=== PATIENT | female | born 1980 | race Caucasian/White ===

== ENCOUNTER 2019-09-04 11:54 | Emergency (ER) | payer BC, OTHER ==
[2019-09-04] MEDS ORDERED: IBUPROFEN 600 MG TABLET PO ONE (12:18)
--- NOTE | 2019-09-04 12:22 | Emergency Department Record ---
History of Present Illness - General Chief Complaint: Ankle/Foot Injury Stated Complaint: FOOT INJURY Time Seen by Provider: 09/04/19 12:18 Source: Patient Mode of Arrival: Ambulatory Limitations: No limitations - History of Present Illness Initial Comments: 39 yo female presents after injury to her foot and ankle last night. She mis- stepped and rolled her ankle. She has lateral foot and ankle pain. No numbness or tingling. No prior injury. No proximal leg or knee pain. Injury occurred last night MD Complaint: Ankle injury, Foot injury Onset/Timin -: Days(s) Injury: Ankle: Right, Foot: Right Type of Injury: Unknown Place: Home Severity scale (1-10): 5 Improves With: Immobilization Worsens With: Weight bearing Context: Walking Associated Symptoms: Snap/pop sensation - Related Data Home Medications Medication Instructions Recorded Confirmed Last Taken Etonogestrel/Ethinyl Estradiol 1 each VG ASDIR 09/04/19 09/04/19 Unknown [Nuvaring Vaginal Ring] Allergies Allergy/AdvReac Type Severity Reaction Status Date / Time morphine Allergy SWELLING Verified 09/04/19 12:12 (GENERAL) Travel Screening - Travel/Exposure Within Last 30 Days Have you traveled within the last 30 days?: No Review of Systems Constitutional: Denies: Chills, Fever, Malaise, Weakness Eyes: Denies: Eye discharge ENT: Denies: Congestion Respiratory: Denies: Cough, Dyspnea, Wheezes Cardiovascular: Denies: Chest pain, Palpitations, Syncope Endocrine: Denies: Fatigue Gastrointestinal: Denies: Abdominal pain, Diarrhea, Nausea, Vomiting Genitourinary: Denies: Dysuria, Urgency Musculoskeletal: Reports: As per HPI, Arthralgia Skin: Denies: Bruising, Change in color, Rash Neurological: Denies: Headache Psychiatric: Denies: Anxiety Hematological/Lymphatic: Denies: Easy bleeding, Easy bruising Past Medical History - SOCIAL HISTORY Smoking Status: Former smoker Alcohol Use: None Drug Use: None - RESPIRATORY Hx Respiratory Disorders: No - CARDIOVASCULAR Hx Cardio Disorders: No - NEURO Hx Neuro Disorders: No - GI Hx GI Disorders: No - Hx Genitourinary Disorders: No - ENDOCRINE Hx Endocrine Disorders: No - MUSCULOSKELETAL Hx Musculoskeletal Disorders: No - PSYCH Hx Psych Problems: Yes Hx Anxiety: Yes Hx Depression: Yes - HEMATOLOGY/ONCOLOGY Hx Hematology/Oncology Disorders: No Family Medical History Any Significant Family History?: No Physical Exam - General General Appearance: Alert, Oriented x3, Cooperative, No acute distress Limitations: No limitations - Head Head exam: Atraumatic, Normal inspection - Eye Eye exam: Normal appearance. negative: Conjunctival injection - ENT ENT exam: Normal exam, Mucous membranes moist Ear exam: Normal external inspection Nasal Exam: Normal inspection Mouth exam: Normal external inspection - Neck Neck exam: Normal inspection - Cardiovascular Peripheral Pulses: 2+: Dorsalis Pedis (R) - Extremities Extremities exam: Full ROM, Joint swelling, Tenderness. negative: Normal insp ection, Calf tenderness, Pedal edema Image of Feet: 1 - lateral distal malleoli tenderness, later foot tenderness, mild swelling, slight bruise - Neurological Neurological exam: Alert, Oriented X3 - Psychiatric Psychiatric exam: Normal affect, Normal mood - Skin Skin exam: Dry, Intact, Normal color, Warm Course Vital Signs 09/04/19 12:10 Temperature 98.6 F Pulse Rate 90 Respiratory 20 Rate Blood Pressure 159/77 Pulse Ox 97 - Reevaluation(s) Reevaluation #1: 09/04/19 13:04 The XR's of the foot and ankle were reviewed No acute fracture or dislocation noted Disposition Disposition: Discharge Clinical Impression: Ankle sprain Qualifiers: Encounter type: initial encounter Involved ligament of ankle: unspecified ligament Laterality: right Qualified Code(s): S93.401A - Sprain of unspecified ligament of right ankle, initial encounter Sprain of foot, right Qualifiers: Encounter type: initial encounter Qualified Code(s): S93.601A - Unspecified sprain of right foot, initial encounter Disposition: Home, Self-Care Condition: (1) Good Instructions: Ankle Sprain (ED), Foot Sprain (ED) Additional Instructions: Use the crutches until you can bear weight without pain Ice the area 3-4 times daily Use the splint for support and comfort until pain is gone Call your doctor for a recheck in the next week if pain continues You may take Tylenol or Motrin for discomfort Forms: Patient Portal Access Quality - Quality Measures Quality Measures: N/A - Blood Pressure Screening Does Patient Have Any of the Following: No Blood Pressure Classification: Hypertensive Reading Systolic Measurement: 159 Diastolic Measurement: 77 Screening for High Blood Pressure: < Pre-Hypertensive BP, F/U Documented > [[id number]] Pre-Hypertensive Follow-up Interventions: Referral to alternative/primary care provider.
--- NOTE | 2019-09-04 13:20 | RADIOLOGY REPORT ---
EXAMINATION: Right Foot, Minimum Three Views EXAM DATE: 09/04/2019 12:45 PM TECHNIQUE: AP, lateral, and oblique INDICATION: rolled last night pain and swelling COMPARISON: None ENCOUNTER: Initial FINDINGS: Soft tissue swelling laterally. No evidence of fracture. No bony abnormality. IMPRESSION: No evidence of fracture. Dictated by: Keagan Hernandez MD on 09/04/2019 1:12 PM. .
--- NOTE | 2019-09-04 13:24 | RADIOLOGY REPORT ---
EXAMINATION: Right Ankle, Complete Minimum Three Views EXAM DATE: 09/04/2019 12:45 PM TECHNIQUE: AP, lateral, and oblique INDICATION: rolled last night pain and swelling COMPARISON: None ENCOUNTER: Initial FINDINGS: There is no bone or joint abnormality. Soft tissue swelling laterally. IMPRESSION: No evidence of fracture. Dictated by: Keagan Hernandez MD on 09/04/2019 1:18 PM. .
== END 2019-09-04 13:47 | disposition home or self-care (01) ==
LOC: ER 11:54
DX: S93.401A Sprain of unspecified ligament of right ankle, initial encounter (principal); S93.601A Unspecified sprain of right foot, initial encounter; X50.0XXA Overexertion from strenuous movement or load, initial encounter; Y92.009 Unspecified place in unspecified non-institutional (private) residence as the place of occurrence of the external cause; Z87.891 Personal history of nicotine dependence
CPT/HCPCS: 99283